=== PATIENT | male | born 1965 ===

== ENCOUNTER 2024-08-14 09:49 | Emergency (ER) | payer SELFPAY ==
[2024-08-14 09:50] VITALS: BMI 36.0
[2024-08-14 10:00] VITALS: BP 133/90; PULSE 90; RESP 19; TEMP 36.9; O2SAT 95
--- NOTE | 2024-08-14 10:03 | XR_ITS ---
Examination: PA lateral chest 2 views TECHNIQUE: Upright PA lateral chest 2 views Exam date and time: 07/14/2024 1010 hours INDICATIONS: Coughing one week. FINDINGS: Mild accentuation basilar bronchovascular markings Mildly prominent right hilum No lobar pneumonia IMPRESSION: Basilar bronchitis pattern Recommend 1 month follow-up PA lateral chest to exclude early enlargement right hilum
--- NOTE | 2024-08-14 10:05 | EDNOTE_ITS ---
<Statement entered by Janny Cantu MD - 08/14/24 13:22> As co-signing physician, I was present and available for consult prn. I concur with the plan and care as documented by the midlevel provider. Upper Respiratory Inf. RME/HPI General Chief Complaint: Flu Like Symptoms Stated Complaint: COUGH, HEADACHE Time Seen by Provider: 08/14/24 10:00 Source: patient Arrival date/time: 08/14/24 09:49 58-year-old male with no known medical history presents to the emergency room with a chief complaint of a cough and a headache x 1 week Mode of arrival: ambulatory Limitations: no limitations Related Data Previous Rx's ?Medication ?Instructions ?Recorded albuterol sulfate 90 mcg/actuation 2 inh inhalation Q6 H PRN shortness 08/14/24 breath activated powder inhaler of breath or wheezing #1 ea benzonatate 100 mg capsule 100 mg PO BID PRN cough #14 caps 08/14/24 prednisone 10 mg tablet 30 mg PO BID 3 days #18 tabs 08/14/24 Allergies Allergy/AdvReac Type Severity Reaction Status Date / Time NKA Allergy Uncoded 08/14/24 09:52 Review of Systems Review of Systems Systems Reviewed: All systems reviewed, normal except as documented Constitutional Constitutional: Reports system reviewed and no additional complaints, except as documented, Denies fatigue, Denies fever(s), Denies headache(s) and Denies weakness Eyes Eyes: Reports system reviewed and no additional complaints, except as documented, Denies blurry vision and Denies change in vision ENT Ears, Nose, Mouth, and Throat: Reports system reviewed and no additional complaints, except as documented, Denies otalgia, Denies headache(s), Denies nasal congestion, Denies throat swelling and Denies vertigo Cardiovascular Cardiovascular: Reports system reviewed and no additional complaints, except as documented, Denies chest pain, Reports dyspnea and Denies dyspnea on exertion Respiratory Respiratory: Reports system reviewed and no additional complaints, except as documented, Reports chest congestion, Reports cough, Reports dyspnea, Denies dyspnea on exertion and Denies wheezing Gastrointestinal Gastrointestinal: Reports system reviewed and no additional complaints, except as documented, Denies abdominal pain, Denies cramping, Denies nausea and Denies vomiting Genitourinary Genitourinary: Reports system reviewed and no additional complaints, except as documented, Denies dysuria and Denies hematuria Musculoskeletal Musculoskeletal: Reports system reviewed and no additional complaints, except as documented and Denies back pain Integumentary/Breasts Skin/Breast: Reports system reviewed and no additional complaints, except as documented and Denies wounds Neurologic Neurologic: Reports system reviewed and no additional complaints, except as documented, Denies confusion, Denies headache(s), Denies lack of coordination, Denies vertigo and Denies weakness Psychiatric Psychiatric: Reports system reviewed and no additional complaints, except as documented, Denies anxiety, Denies confusion, Denies depression, Denies paranoia, Denies suicidal ideation and Denies tactile hallucinations Endocrine Endocrine: Reports system reviewed and no additional complaints, except as documented and Denies fatigue Hematologic/Lymphatic Hematologic/Lymphatic: Reports system reviewed and no additional complaints, except as documented and Denies lymphadenopathy Allergic/Immunologic Allergic/Immunologic: Reports system reviewed and no additional complaints, except as documented, Denies throat swelling, Denies urticaria and Denies wheezing Past Medical History Social History SMOKING STATUS: Never smoker ED Exam General Limitations: Present no limitations General appearance: Present alert and in no apparent distress Head Head exam: Present atraumatic Eye Eye exam: Present normal appearance, PERRL and EOMI ENT ENT exam: Present normal exam, normal oropharynx and mucous membranes moist Neck Neck exam: Present normal inspection, full ROM and trachea midline Chest Chest inspection: Present normal inspection and symmetric chest wall rise Respiratory Respiratory exam: Present normal lung sounds bilaterally and wheezes; Absent res piratory distress, stridor, accessory muscle use or prolonged expiratory phase Expanded Respiratory Exam Location: Right: wheezes, Upper: wheezes and Lower: wheezes Cardiovascular Cardiovascular exam: Present regular rate, normal rhythm and normal heart sounds; Absent bradycardia, tachycardia or irregular rhythm Abdominal Exam Abdominal exam: Present soft and normal bowel sounds Extremities Exam Extremities exam: Present normal inspection and full ROM Back Exam Back exam: Present normal inspection and full ROM Neurological Exam Neurological exam: Present alert, oriented X3 and CN II-XII intact Psychiatric Psychiatric exam: Present normal affect and normal mood Skin Skin exam: Present warm, dry, intact and normal color Course Quality Measures none Orders Category Date Time Status Bedside COVID-19 Antigen Test NOW Care 08/14/24 10:03 Active Bedside Influenza A&B Antigen Test NOW Care 08/14/24 10:03 Completed XR chest 2V Stat Exams 08/14/24 10:03 Completed Albuterol/Ipratr Rt Maria Esther [Duoneb Rt Maria Esther] Med 08/14/24 10:03 Discontinued 3 ml INH X1 ONE Dexamethasone Inj [Decadron Inj] Med 08/14/24 10:03 Discontinued 10 mg PO X1 ONE Vital Signs Vital signs: Vital Signs Temperature 98.4 F 08/14/24 10:00 Pulse Rate 90 08/14/24 10:00 Respiratory Rate 19 08/14/24 10:00 Blood Pressure 133/90 H 08/14/24 10:00 Pulse Oximetry (%) 95 08/14/24 10:00 Oxygen Delivery Method Room Air 08/14/24 10:00 O2 saturation 95% within normal limits Upper Respiratory Infection MDM Narrative MDM Narrative:: 58-year-old male with no known medical history presents to the emergency room with a chief complaint of a cough and a headache x 1 week Patient is hemodynamically stable and in no apparent distress Patient has wheezing to the upper and lower lobes on the right side. A breathing treatment was given as well as steroids and the patient was r eevaluated in 1 hour with significant improvement to his symptoms Chest x-ray showed bronchitis. Patient tested negative for COVID-19 and influenza. Medication was sent to the patient's pharmacy patient was discharged and educated to follow-up with primary care provider and return to the emergency room for any evidence of worsening signs or symptoms Patient data External records reviewed:: [facility] previous records Clinical information provided by:: patient Social determinants that could affect healthcare access:: none Patient has the following chronic illnesses:: No chronic illness How is presenting disease/condition affected by chronic disease/condition?: no chronic disease Evaluation data The following diagnostics were reviewed and interpreted by me:: lab results and radiology exam(s) Lab and/or radiology exams considered but not ordered:: Labs and radiology exams considered and ordered go ahead Interpretation Summary: Chest [id number]: Mild accentuation basilar bronchovascular markings Mildly prominent right hilum No lobar pneumonia IMPRESSION: Basilar bronchitis pattern Recommend 1 month follow-up PA lateral chest to exclude early enlargement right hilum Medications / Prescriptions Medications or Prescriptions considered but not ordered:: Medication given Medication administrations:: Medication Administration History Discontinued Medications Albuterol/Ipratropium (Albuterol/Ipratropium (Duoneb) Rt Maria Esther 3 Ml Nebu) 3 ml INH X1 ONE Stop: 08/14/24 10:04 Last Admin: 08/14/24 10:26 Dose: 3 ml Documented By: Dexamethasone Sodium Phosphate (Dexamethasone Sod Phos Inj 10 Mg/Ml Vial) 10 mg PO X1 ONE Stop: 08/14/24 10:04 Last Admin: 08/14/24 10:38 Dose: 10 mg Documented By: DD Medication given Consultations Consultation(s) initiated? (list below): No Diagnosis Upper Respiratory Differential Diagnosis: upper respiratory infection, sinusitis, viral infection, bronchitis, influenza, pharyngitis and other (Community-acquired pneumonia) Most likely diagnosis given after review of the tests above:: Bronchitis Admission Indicated Admission indicated?: not indicated Admission Request Was there a request for admission?: No Disposition Plan Disposition Plan: Discharge Discharge Attestation Discharge Attestation: The patient and all family members were given an opportunity to ask questions and understood the discharge instructions. Discharge instructions specifically effects, indications for sooner follow up or return to the emergency department, and the expected course of current diagnosis. Patient condition: Stable Discharge Plan Plan Patient Disposition: HOME (Self Care) Disposition Comment: Stable Prescriptions/Referrals Prescriptions/Med Rec: New albuterol sulfate 90 mcg/actuation aerosol powdr breath activated 2 inh inhalation Q6H PRN (Reason: shortness of breath or wheezing) Qty: 1 0RF benzonatate 100 mg capsule 100 mg PO BID PRN (Reason: cough) Qty: 14 0RF prednisone 10 mg tablet 30 mg PO BID 3 Days Qty: 18 0RF Taper: Prednisone Taper 20 mg DAILY for 2 Days and 0 Hour 10 mg DAILY for 2 Days and 0 Hour 5 mg DAILY for 7 Days and 0 Hour Problem List Clinical Impression: Bronchitis Patient/Caregiver Discharge Instructions Education Materials: ED Bronchitis, No Antibiotic (Adult) Additional Instructions: Please follow-up with your primary care provider in the next 24 to 48 hours. Your chest x-ray showed bronchitis. Medication was sent to your pharmacy to help you with your symptoms. Please pick them up and take them as indicated. For any evidence of worsening signs or symptoms return to the emergency room immediately Print Language: [place]uran Stand Alone Forms: Aleisha Award Info., Patient Portal Info Letter PA/KESHAWN Supervising Physician PA/KESHAWN Supervising Physician: Dr. CANTU
[2024-08-14] MEDS: ALBUTEROL/IPRATROPIUM (Duoneb) RT SOL 3 ML NEBU INH (10:26)
[2024-08-14 10:28] VITALS: PULSE 90; RESP 16; O2SAT 99
[2024-08-14] MEDS: DEXAMETHASONE SOD PHOS INJ 10 MG/ML VIAL PO (10:38)
== END 2024-08-14 14:37 | disposition home or self-care (01) ==
LOC: SERX 14:06
PROVIDERS: Emergency Provider Emergency Medicine
DX: J40 Bronchitis, not specified as acute or chronic (principal)
CPT/HCPCS: 71046; 87400; 87811; 94640; 99283; A9270; J1100